=== PATIENT | male | born 1960 | race Caucasian/White ===

== ENCOUNTER 2016-12-16 03:53 | Inpatient (IN) | payer BC ==
--- NOTE | ~2016-12-16 | HP ---
History And Physical [place] [id number] [place]. [address] NAME: MERYL SEYMOUR : 56 STATUS : ADM IN [facility]#: [id number] AGE: 56 ADM/REG DATE : 12/16/16 MR#: [id number] REPORT SERV DATE: 12/16/16 DICTATED BY: YOHANA NASH DATE: 12/16/16 REPORT STATUS : Draft TRANSCRIBED BY: SERGIO DATE: 12/16/16 DATE OF ADMISSION: 12/16/2016 CHIEF COMPLAINT: A 56-year-old male presenting with weight loss and migratory arthritis and elevated ESR of 94. HISTORY OF PRESENTING ILLNESS: The patient's history was obtained through careful interview with the patient, , daughter, sister, coupled with review of [facility]. Around the end of October 2016, the patient began to have generalized illness. Over that period of time, he has lost about 10 or 15 pounds. His main complaints started out as some right middle quadrant abdominal pain, a sharp quality, 11/10 severity, but it has actually improved over time. He has had apparently "negative" evaluations of his abdomen. He describes "flushing," subjective fevers and chills. He has had pleuritic-like chest discomfort. He also describes difficulty swallowing as if something is getting caught in the back of his throat. He has had increasing weakness and debilitation. 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 It has affected his right hand and wrist and right feet. It becomes overtly swollen and then will go away within a day. He also has "lumps" that come and go. Sometimes, they have been on the sole of his foot or on his back. There have been no rashes. REVIEW OF SYSTEMS: A 14-point review of systems was obtained. Some of the pertinent positives and negatives will be reviewed here. GENERAL: There has been about a 10-15 pounds weight loss over three weeks. SKIN: He has noticed some rash-like discomfort of his lower back, although it has resolved now. HEAD: He has developed a headache. No neck pain or stiffness. EYES: No vision loss. No painful eyes. No change in vision or discharge from the eyes. NOSE: No nosebleeds. No sinus drainage or sinus pressure. MOUTH AND THROAT: No sores of the mouth. No thrush. No teeth problems. RESPIRATORY: No hemoptysis. No cough. No wheeze. CARDIOVASCULAR: No lower extremity edema. No palpitations. GI: No reflux symptoms. He has poor appetite. He has dry heaves and nausea, but never actually vomits up anything. No hematochezia. No melena. URINARY: He has noticed painful urination at times with urinary urgency, but he has not noticed any blood in his urine. History And Physical [address] [address] NAME: MERYL SEYMOUR : 56 STATUS : ADM IN [facility]#: [id number] AGE: 56 ADM/REG DATE : 12/16/16 MR#: [id number] REPORT SERV DATE: 12/16/16 DICTATED BY: YOHANA NASH DATE: 12/16/16 REPORT STATUS : Draft TRANSCRIBED BY: SERGIO DATE: 12/16/16 NEUROLOGICAL: No dizziness. No vertigo. Otherwise as mentioned 14-point review of systems was obtained and was otherwise negative. PAST MEDICAL HISTORY: Hypertension. PAST SURGICAL HISTORY: Left knee surgery and eye surgery. ALLERGIES: CIPRO, CAT DANDER. SOCIAL HISTORY: Smokes cigarettes. Drinks alcohol. Chews tobacco. He is , lives in [place], [place], has one daughter. Works as a ward. FAMILY HISTORY: Siblings with heart disease. Mother with rheumatoid arthritis and stroke. Father with lung cancer. CURRENT MEDICATIONS: Include aspirin 325 mg p.o. daily, vitamin B12, Flonase, Advil p.r.n., Prevacid 15 mg p.o. daily, multivitamin daily, Bystolic 7 mg as needed. PHYSICAL EXAMINATION: VITAL SIGNS: Temperature 98.2, pulse 113, blood pressure 120/89, respiratory rate 20, and O2 saturation 97% on room air. GENERAL: A pleasant, cooperative, male. He appears ill, but in no evidence of acute distress. HEENT: Pupils equal, round, and reactive to light. No conjunctival pallor. No scleral icterus. Nares are patent. Oropharynx is clear of obstruction. Moist mucous membranes. No swelling of the tongue. No intraoral lesions. Moist mucous membranes. NECK: Trachea midline. No thyromegaly. LYMPH: No cervical lymphadenopathy. No supraclavicular lymphadenopathy. No bilateral axillary lymphadenopathy. No bilateral inguinal lymphadenopathy. RESPIRATORY: Clear to auscultation at bases. No wheezes, no rales, no rhonchi. Normal respiratory effort. CARDIOVASCULAR: Tachycardic, regular rhythm. No murmurs, rubs, or gallops. No current extremity edema is appreciated. ABDOMEN: Only minimal tenderness across the mid abdomen, nonfocal, nondistended. No hepatosplenomegaly. DERMATOLOGICAL: Warm and dry extremities. No pallor, no cyanosis. I do not appreciate any rashes on a complete skin examination of the patient and no inflammatory changes of any of his joints at this time. PSYCHIATRIC: Normal affect. Good mood. Alert and oriented x3. LABORATORY DATA: ESR 94, CRP 223. White blood cell count 18.9, hemoglobin 12.6, hematocrit 36.8, platelets 507. Sodium 134, potassium 4.5, chloride 98, bicarbonate 22, BUN 13, creatinine 0.85, glucose 145, LEVI level is undetectable, lipase 85. Troponin negative. Lactic acid 1.2, ammonia level 17. Liver enzymes were within normal limits. Urinalysis does show greater than 182 red blood cells, 17 white blood cells. STUDIES: History And Physical [address] [address] NAME: MERYL SEYMOUR : 56 STATUS : ADM IN [facility]#: [id number] AGE: 56 ADM/REG DATE : 12/16/16 MR#: [id number] REPORT SERV DATE: 12/16/16 DICTATED BY: YOHANA NASH DATE: 12/16/16 REPORT STATUS : Draft TRANSCRIBED BY: SERGIO DATE: 12/16/[address] angiogram of the chest on 12/09/[address] scan of the abdomen and pelvis now shows cystitis-like changes. 3. Chest x-ray by my own evaluation shows no acute cardiopulmonary process. ASSESSMENT AND PLAN: 1. Inflammatory condition with migratory inflammatory arthritis. ESR of 94. Elevated CRP. Check an TIERA. Check rheumatoid factor. Check complement levels. Check an echocardiogram. Consult Rheumatology as I suspect this is rheumatological condition. We will also consult Infectious Disease to rule out the possibility of some underlying infectious process? 2. Hematuria with cystitis. Consult Urology, Dr. Patel. 3. Migratory arthritis. Check RPR. Check gonorrhea and chlamydia. KPL/MODL Yohana Nash M.D. / [id number] CC: MD John Spain MD
--- NOTE | ~2016-12-16 | DS ---
Discharge Summary [facility] [address] [place]. [address] NAME: MERYL SEYMOUR : 56 STATUS : DIS IN PAT#: [id number] AGE: 56 ADM/REG DATE : 12/16/16 MR#: [id number] REPORT SERV DATE: 12/20/16 DICTATED BY: DATE: REPORT STATUS : Draft TRANSCRIBED BY: MODL DATE: 12/19/16 ADMISSION DATE: 12/16/2016 DISCHARGE DATE: 12/19/2016 DISCHARGE DIAGNOSES: 1. Migratory arthritis. 2. Fever. 3. Rule out acute rheumatic fever. 4. Rule out polymyalgia rheumatica. 5. Leukocytosis. 6. Hyponatremia. 7. Hematuria. 8. Moderate protein-calorie malnutrition. 9. Weight loss. 10.Poor appetite. CONSULTS: Urology, Dr. Schuster. PROCEDURES AND IMAGIN. 12/16/2016, portable chest x-ray showed no acute cardiopulmonary diseases. 2. 12/16/2016, CT of the abdomen and pelvis without contrast showed no acute abnormality of the abdomen or pelvis with nonspecific inflammatory changes in the presacral space and perifascicular space, which may suggest acute cystitis or prostatitis. HOSPITAL COURSE: This is a pleasant 56-year-old male, presenting with weight loss and migratory arthritis and elevated sedimentation rate of 94. Please see admission H and P from Dr. Richardson on 12/16/2016. The patient states around the end of October 2016, began to have generalized illness and lost approximately 10-15 pounds. The patient's current albumin is 2.2. Upon my assuming his care on 12/18/2016, the patient was complaining of bilateral shoulder pain and bilateral hip and sacral pain stating it was acute onset starting approximately three weeks and has been very severe and escalating in pain. The patient states he had good episodic relief from his pain and his headache upon administration of IV steroids on admission and has not required any more pain medication since steroid administration. It has been discussed with this patient that we plan to continue his steroids for another three days after discharge to quite the inflammatory process. The patient's RNA was 54. His complement C was 140, complement C4 was 23.9. His blood cultures have all been negative. His TIERA titer was less than 1:40. He had a strep screen, which was negative. His RPR was negative. Stools for occult blood were negative and the patient had a normal respiratory culture. The patient stated upon examination on 12/18/2016 that he was having such severe pain that he was having difficulty getting out of bed, but approximately an hour and a half after he had his steroid injection, he was able to get up and take a shower. Tramadol was prescribed for pain control and the patient has not required any of this medication. Also received 40 mg of IV Solu-Medrol today with no complaints of pain. The patient does have a strong family history of rheumatoid arthritis of his mother and father. He has had an echocardiogram done, which was also within normal limits. Discharge Summary [place] [id number] [facility] [place]. [address] NAME: MERYL SEYMOUR : 56 STATUS : DIS IN [facility]#: [id number] AGE: 56 ADM/REG DATE : 12/16/16 MR#: [id number] REPORT SERV DATE: 12/20/16 DICTATED BY: DATE: REPORT STATUS : Draft TRANSCRIBED BY: SERGIO DATE: 12/19/16 PHYSICAL EXAMINATION: HEENT: Head is atraumatic, normocephalic. Pupils are equal, round, reactive to light and accommodation. Sclerae are clear. Nonicteric. Good dentition. NECK: Neck is supple with no palpable lymphadenopathy or thyromegaly. Neck veins are flat. CARDIAC: Regular rhythm with no obvious murmurs, rubs, or gallops. LUNGS: Lungs are clear to auscultation with normal respiratory effort. GI: Abdomen is soft and nontender with active bowel sounds in all four quadrants. Normal bowel habitus. No palpable organomegaly. EXTREMITIES: No significant edema, clubbing, or cyanosis. Dorsalis pedis and posterior tibial pulses are equal bilaterally. MUSCULOSKELETAL: Moves all extremities x4. He is ambulatory without assistance. No difficulties with balance. SKIN: Skin is warm and dry with normal color and turgor. NEURO/PSYCH: The patient is alert and oriented x4, pleasant, cooperative. Cranial nerves II through XII are grossly intact. The patient has had a poor appetite prior to stay, but in the last two days, has been eating well. DISCHARGE DIET: Regular diet. DISCHARGE MEDICATIONS: Vitamin B12 1000 units daily, aspirin 325 mg daily, Flonase two sprays in each nostril as needed for allergies, Advil 800 mg twice daily as needed for pain, Prevacid 15 mg p.o. daily p.r.n., Centrum one tablet daily, Bystolic 10 mg as needed for blood pressure, and prednisone 40 mg p.o. daily x3 days. ALLERGIES: THE PATIENT STATES HE IS ALLERGIC TO CIPRO FOR WHICH HE HAD ANGIOEDEMA AND CAT DANDER. THE PATIENT IS TO FOLLOW UP WITH A PCP IN 7-10 DAYS. THE PATIENT IS ALSO TO FOLLOW UP WITH UROLOGY IN [place] PER INSTRUCTIONS BY DR. SCHUSTER. THE PATIENT IS ALSO TO FOLLOW UP WITH RHEUMATOLOGY IF AGREED UPON BY DR. TAMIKO HUNTER. THEY WILL CONTACT HIM WITH AN APPOINTMENT IF IT IS CONSIDERED APPROPRIATE. APPROXIMATELY, 30 MINUTES HAS BEEN SPENT COORDINATING DISCHARGE CARE OF THIS PATIENT, INCLUDING [id number] ENCOUNTER AND SUMMARIZATION OF THIS DISCHARGE. SLC/MODL Mariann Moore NP / [id number] CC: MD John Calix MD
--- NOTE | ~2016-12-16 | CN ---
Consultation Report [facility] [address] [place]. [address] NAME: MEYRL SEYMOUR : 56 STATUS : ADM IN PAT#: [id number] AGE: 56 ADM/REG DATE : 12/16/16 MR#: [id number] REPORT SERV DATE: 12/16/16 DICTATED BY: CHATO TERRY III DATE: 12/16/16 REPORT STATUS : Draft TRANSCRIBED BY: MODGem DATE: 12/16/16 CONSULTATION DATE OF CONSULTATION: 12/16/2016 REASON FOR CONSULT: Cystitis and microscopic hematuria. HISTORY OF PRESENT ILLNESS: The patient is a 56-year-old male, who was readmitted with diagnosis of abdominal pain and multiple arthritic complaints. His history includes admission several weeks ago for right sided abdominal pain. This had a pleuritic component and he was evaluated with a CTA of the chest, which was normal, also the HIDA scan to check the gallbladder, this was normal as well. He has continued to have his pain, but the pain actually has in the middle of the right abdomen has improved somewhat. On the way to the hospital he just got swelling of his lips and throat, difficulty swallowing, and chills. He has had issues with transient pain in his wrist and right hand more and today is mainly his left shoulder, although, his right shoulder is hurting as well. His urologic complaints include slowing of his stream, some hesitancy, and mild discomfort with voiding over the last three to four weeks. Urinalysis showed 182 RBCs, 17 white cells. I could not find a previous urinalysis from the first admission. He states he has had no gross hematuria, no flank pain, and he has no history of stones. He was admitted to evaluate his migratory arthritis since his sedimentation rate and C-reactive protein were both elevated. He also continues to have some pleuritic type chest pain. PAST MEDICAL HISTORY: Hypertension, surgery on one eye, and surgery on his left knee. 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 FAMILY HISTORY: Positive for stroke, rheumatoid arthritis, and lung cancer. MEDICATIONS: Aspirin, Flonase, and Bystolic. REVIEW OF SYSTEMS: Review of systems that were basically limited to those in the in the present history of present illness. 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 PHYSICAL EXAMINATION: GENERAL: On exam, he is alert and oriented. VITAL SIGNS: Blood pressure is 128/75, he is afebrile pulse was 82. HEENT: Unremarkable. NECK: Supple. LUNGS: Clear. ABDOMEN: He did complain of pain in his right abdomen with deep breath. Abdomen was soft. Consultation Report [address] [place]. [address] NAME: MERYL SEYMOUR : 56 STATUS : ADM IN PAT#: [id number] AGE: 56 ADM/REG DATE : 12/16/16 MR#: [id number] REPORT SERV DATE: 12/16/16 DICTATED BY: CHATO TERRY III DATE: 12/16/16 REPORT STATUS : Draft TRANSCRIBED BY: SERGIO DATE: 12/16/16 Bowel sounds were present and active. There was some mild discomfort in the right lower quadrant. No mass was palpated. GENITOURINARY: The bladder was not palpable. Femoral pulses were intact. There are no inguinal adenopathy. Testicles were descended bilaterally, palpably normal. Normal Vasa and epididymides. The urethral meatus was normal. Anal sphincter tone was normal. There are no rectal masses. The prostate was 1+ to 2 smooth and without tenderness. DIAGNOSTIC DATA: His CT report was reviewed and he has one small stone in the lower pole of the left kidney. There is also two cyst. There was no obstruction. Several phleboliths are noted on the on the left side. The bladder is somewhat thick walled with some stranding. There were no intravesical masses. I later reviewed the CT with the radiologist. There was some stranding in the retroperitoneum and presacral area. LABORATORY DATA: His lab includes a CRP of 223, with sedimentation rate of 94, white count was 18.9, creatinine was normal, lipase was 85. IMPRESSION: The urologic problem includes microscopic hematuria, and symptoms suggestive of urinary tract infection, the bladder wall is mildly thickened and certainly urinary tract infection could cause this. He also has migratory arthritis and I am not sure what the correlation is with his voiding symptoms. A rheumatology consult has been ordered. The patient clinically does not have prostatitis and he did get a gram of Rocephin. However, I would like to get a urine culture. It does not look like a reflex culture was done and we will send to cytology. In addition, I will go ahead and start him on Flomax for his voiding symptoms. Thank you for the consult. OB/MODL Chato Terry III, M.D. / [id number] CC: Chris Burdick MD
[2016-12-16 02:40] LABS: BASOPHILS 0.2 %; BASOPHILS ABSOLUTE 0.03 10/3/uL (0.0-0.16); EOSINOPHILS 3.7 %; HEMOGLOBIN 12.6 g/dL (13.6-17.8); IMMATURE GRANULOCYTES 1.4 %; IMMATURE GRANULOCYTES ABSOLUTE 0.26 10/3/uL (0.0-0.11); LYMPHOCYTES 6.1 %; LYMPHOCYTES ABSOLUTE 1.15 10/3/uL (0.67-4.30); MEAN CORPUS HGB CONC 34.2 g/dL (32.0-36.0); MEAN CORPUSCULAR HEMOGLOB 27.9 pg (26.0-34.0); MEAN PLATELET VOLUME 8.3 fL (9.2-13.0); MONOCYTES 8.4 %; MONOCYTES ABSOLUTE 1.58 10/3/uL (0.21-1.20); NEUTROPHILS 80.2 %; NEUTROPHILS ABSOLUTE 15.19 10/3/uL (2.02-8.40); PLATELET COUNT 507 10/3/uL (150-400); RBC DISTRIBUTION WIDTH 13.3 % (12.0-16.0); RED CELL COUNT 4.51 10/6/uL (4.7-6.1)
[2016-12-16 02:44] LABS: ER CBC TAT 0 Hrs 07 Mins; HEMATOCRIT 36.8 % (40.0-51.0); MANUAL DIFF NO %; MEAN CORPUSCULAR VOLUME 81.6 fL (80-100); WHITE BLOOD CELLS 18.9 10/3/uL (4.5-10.5)
[2016-12-16 02:58] LABS: BAND NEUTROPHILS 6 %; BASOPHILS 1 %; BASOPHILS ABSOLUTE (CALC) 0.19 10/3/uL (0.0-0.16); EOSINOPHILS 2 %; EOSINOPHILS ABSOLUTE (CALC) 0.38 10/3/uL (0.0-0.53); ER DIFF TAT 0 Hrs 21 Mins; LYMPHOCYTES 5 %; LYMPHOCYTES ABSOLUTE (CALC) 0.95 10/3/uL (0.67-4.30); MONOCYTES 7 %; MONOCYTES ABSOLUTE (CALC) 1.32 10/3/uL (0.21-1.20); NEUTROPHILS ABSOLUTE (CALC) 16.07 10/3/uL (2.02-8.40); SEGMENTED NEUTROPHIL (0) 79 %; TOTAL NUCLEATED CELLS 100
[2016-12-16 02:59] LABS: PLATELET ESTIMATE SLT INC (ADEQUATE); RBC MORPHOLOGY NORM (NORMAL)
[2016-12-16 03:02] LABS: A/G RATIO 0.5 (0.7-1.9); ALBUMIN 2.8 G/DL (3.5-5.0); ALKALINE PHOSPHATASE 87 U/L (45-117); BUN (BLOOD UREA NITROGEN) 13 MG/DL (6-23); CALCIUM, SERUM 9.4 MG/DL (8.5-10.4); CHLORIDE, SERUM 98 MMOL/L (96-112); CO2 (CARBON DIOXIDE) 22 MMOL/L (24-34); CPK (IF ELEVATED MB BANDS) 21 U/L (0-200); CREATININE 0.85 MG/DL (0.70-1.30); GFR AFRICAN AMERICAN 111 ML/MIN (>=60); GFR NON AFRICAN AMERICAN 96 ML/MIN (>=60); GLOBULIN 5.2 G/DL (2.5-4.1); GLUCOSE, SERUM 145 MG/DL (60-99); POTASSIUM, SERUM 4.5 MMOL/L (3.5-5.3); SGOT(AST) 13 U/L (5-40); SGPT(ALT) 24 U/L (5-65); SODIUM, SERUM 134 MMOL/L (135-148); TOTAL BILIRUBIN 0.4 MG/DL (0-1.2); TROPONIN I <0.02 NG/ML (<0.05)
[2016-12-16 03:07] LABS: ACETAMINOPHEN LEVEL (TYLENOL) < 2.0 MCG/ML (10.0-20.0); SALICYLATE < 1.7 MG/DL (-)
[2016-12-16 03:08] LABS: ALCOHOL < 10 MG/DL (0)
[~2016-12-16 03:53] MED LIST: ADVIL PO; ASA5GR PO; CENTRUM PO; CIPRO PO; COZ50 PO; FLONASE NAS; PREV15 PO; [UNRECOGNIZED DRUG - REMARK] TOP
[2016-12-16 04:11] LABS: ASCORBIC ACID (UR NOT ORDER) 40 (NEG); BILIRUBIN, URINE NEGATIVE (NEG); ER URINALYSIS TAT 0 Hrs 10 Mins; KETONE, URINE 20 MG/DL (NEG); LEUKOCYTE ESTERASE(NOT OR TRACE (NEG); NITRITE (URINE) NEG (NEG); WBC (NOT ORDERED) (RFLEX) 17 (0-5)
[2016-12-16 04:28] LABS: AMPHETAMINES (NOT ORD) NEG (NEG); BARBITURATES (NOT ORDERED NEG (NEG); BENZODIAZEPINES (NOT ORD) NEG (NEG); CANNABINOIDS (THC) NEG (NEG); COCAINE (NOT ORDERED) NEG (NEG); OPIATES POS (NEG); PHENCYCLIDINE(PCP) NEG (NEG)
[2016-12-16 04:29] LABS: TRICYCLICS NEG (NEG)
[2016-12-16] MEDS ORDERED: ASA5GR PO (05:15)
[2016-12-16] MEDS ORDERED: FLONASE NAS (05:16)
[2016-12-16] MEDS ORDERED: PREV15 PO (05:17)
[2016-12-16] MEDS ORDERED: ADVIL PO (05:17)
[2016-12-16] MEDS ORDERED: CENTRUM PO (05:18)
[2016-12-16] MEDS ORDERED: BYSTOLIC10 MG PO (05:19)
[2016-12-16] MEDS ORDERED: CYANO1000T PO (05:20)
[2016-12-16 07:40] LABS: COMPLEMENT C4 23.9 MG/DL (16-47)
[2016-12-17 06:26] LABS: BASOPHILS 0.1 %; BASOPHILS ABSOLUTE 0.01 10/3/uL (0.0-0.16); EOSINOPHILS ABSOLUTE 0.64 10/3/uL (0.0-0.53); HEMOGLOBIN 10.3 g/dL (13.6-17.8); IMMATURE GRANULOCYTES 0.9 %; IMMATURE GRANULOCYTES ABSOLUTE 0.11 10/3/uL (0.0-0.11); LYMPHOCYTES 4.6 %; LYMPHOCYTES ABSOLUTE 0.59 10/3/uL (0.67-4.30); MEAN CORPUS HGB CONC 32.6 g/dL (32.0-36.0); MEAN CORPUSCULAR HEMOGLOB 27.2 pg (26.0-34.0); MEAN CORPUSCULAR VOLUME 83.6 fL (80-100); MEAN PLATELET VOLUME 8.3 fL (9.2-13.0); MONOCYTES 8.7 %; MONOCYTES ABSOLUTE 1.12 10/3/uL (0.21-1.20); NEUTROPHILS 80.7 %; NEUTROPHILS ABSOLUTE 10.35 10/3/uL (2.02-8.40); PLATELET COUNT 422 10/3/uL (150-400); RBC DISTRIBUTION WIDTH 13.3 % (12.0-16.0); RED CELL COUNT 3.78 10/6/uL (4.7-6.1); WHITE BLOOD CELLS 12.8 10/3/uL (4.5-10.5)
[2016-12-17 06:27] LABS: HEMATOCRIT 31.6 % (40.0-51.0); MANUAL DIFF NO %
[2016-12-17 06:30] LABS: BUN (BLOOD UREA NITROGEN) 12 MG/DL (6-23); CALCIUM, SERUM 8.2 MG/DL (8.5-10.4); CHLORIDE, SERUM 97 MMOL/L (96-112); CO2 (CARBON DIOXIDE) 24 MMOL/L (24-34); CREATININE 0.68 MG/DL (0.70-1.30); GFR AFRICAN AMERICAN 122 ML/MIN (>=60); GFR NON AFRICAN AMERICAN 105 ML/MIN (>=60); GLUCOSE, SERUM 107 MG/DL (60-99); POTASSIUM, SERUM 4.1 MMOL/L (3.5-5.3); SODIUM, SERUM 132 MMOL/L (135-148)
[2016-12-17 09:39] LABS: ANA TITER <1:40 TITER
[2016-12-17 14:01] LABS: ASCORBIC ACID (UR NOT ORDER) NEG (NEG); BILIRUBIN, URINE NEGATIVE (NEG); KETONE, URINE NEGATIVE (NEG); LEUKOCYTE ESTERASE(NOT OR TRACE (NEG); WBC (NOT ORDERED) (RFLEX) 4 (0-5)
[2016-12-18 05:09] LABS: BASOPHILS 0.1 %; BASOPHILS ABSOLUTE 0.01 10/3/uL (0.0-0.16); EOSINOPHILS 5.2 %; EOSINOPHILS ABSOLUTE 0.62 10/3/uL (0.0-0.53); HEMATOCRIT 33.3 % (40.0-51.0); IMMATURE GRANULOCYTES 0.8 %; IMMATURE GRANULOCYTES ABSOLUTE 0.09 10/3/uL (0.0-0.11); LYMPHOCYTES ABSOLUTE 0.96 10/3/uL (0.67-4.30); MEAN CORPUSCULAR HEMOGLOB 27.4 pg (26.0-34.0); MEAN PLATELET VOLUME 8.2 fL (9.2-13.0); MONOCYTES 7.8 %; MONOCYTES ABSOLUTE 0.94 10/3/uL (0.21-1.20); NEUTROPHILS 78.1 %; NEUTROPHILS ABSOLUTE 9.36 10/3/uL (2.02-8.40); PLATELET COUNT 370 10/3/uL (150-400); RBC DISTRIBUTION WIDTH 13.4 % (12.0-16.0); RED CELL COUNT 4.01 10/6/uL (4.7-6.1)
[2016-12-18 05:10] LABS: MANUAL DIFF NO %
[2016-12-18 05:24] LABS: A/G RATIO 0.4 (0.7-1.9); ALKALINE PHOSPHATASE 91 U/L (45-117); BUN (BLOOD UREA NITROGEN) 10 MG/DL (6-23); CALCIUM, SERUM 8.6 MG/DL (8.5-10.4); CHLORIDE, SERUM 95 MMOL/L (96-112); CO2 (CARBON DIOXIDE) 26 MMOL/L (24-34); CREATININE 0.91 MG/DL (0.70-1.30); GFR AFRICAN AMERICAN 107 ML/MIN (>=60); GFR NON AFRICAN AMERICAN 93 ML/MIN (>=60); GLUCOSE, SERUM 110 MG/DL (60-99); POTASSIUM, SERUM 3.8 MMOL/L (3.5-5.3); SGOT(AST) 8 U/L (5-40); SGPT(ALT) 18 U/L (5-65); SODIUM, SERUM 133 MMOL/L (135-148); TOTAL BILIRUBIN 0.3 MG/DL (0-1.2); TOTAL PROTEIN 7.2 G/DL (6.0-8.5)
[2016-12-18 05:27] LABS: ALBUMIN 2.2 G/DL (3.5-5.0)
[2016-12-19 04:07] LABS: BUN (BLOOD UREA NITROGEN) 15 MG/DL (6-23); CALCIUM, SERUM 9.2 MG/DL (8.5-10.4); CHLORIDE, SERUM 100 MMOL/L (96-112); CO2 (CARBON DIOXIDE) 27 MMOL/L (24-34); CREATININE 0.86 MG/DL (0.70-1.30); GFR AFRICAN AMERICAN 111 ML/MIN (>=60); GFR NON AFRICAN AMERICAN 96 ML/MIN (>=60); GLUCOSE, SERUM 155 MG/DL (60-99); POTASSIUM, SERUM 4.3 MMOL/L (3.5-5.3); SODIUM, SERUM 137 MMOL/L (135-148)
[2016-12-19 04:11] LABS: BASOPHILS 0 %; EOSINOPHILS 0.1 %; EOSINOPHILS ABSOLUTE 0.01 10/3/uL (0.0-0.53); HEMATOCRIT 30.2 % (40.0-51.0); HEMOGLOBIN 10.2 g/dL (13.6-17.8); IMMATURE GRANULOCYTES 0.5 %; IMMATURE GRANULOCYTES ABSOLUTE 0.07 10/3/uL (0.0-0.11); LYMPHOCYTES ABSOLUTE 0.77 10/3/uL (0.67-4.30); MANUAL DIFF NO %; MEAN CORPUS HGB CONC 33.8 g/dL (32.0-36.0); MEAN CORPUSCULAR HEMOGLOB 27.6 pg (26.0-34.0); MEAN CORPUSCULAR VOLUME 81.8 fL (80-100); MEAN PLATELET VOLUME 8.9 fL (9.2-13.0); MONOCYTES 7.5 %; MONOCYTES ABSOLUTE 1.15 10/3/uL (0.21-1.20); NEUTROPHILS 86.9 %; NEUTROPHILS ABSOLUTE 13.26 10/3/uL (2.02-8.40); PLATELET COUNT 388 10/3/uL (150-400); RBC DISTRIBUTION WIDTH 13.2 % (12.0-16.0); RED CELL COUNT 3.69 10/6/uL (4.7-6.1); WHITE BLOOD CELLS 15.3 10/3/uL (4.5-10.5)
[2016-12-19] MEDS ORDERED: P20 PO (18:42)
[2016-12-19] MEDS ORDERED: FLOMAX4 PO (19:06)
== END 2016-12-19 19:17 | disposition home or self-care (01) | DRG 546 ==
LOC: ER 03:53 → 7NO 05:19
PROVIDERS: Hospitalist; Nurse Practitioner Family; Radiology Radiation Oncology; Specialist
DX: M35.3 Polymyalgia rheumatica (principal); E44.0 Moderate protein-calorie malnutrition; N30.91 Cystitis, unspecified with hematuria; E87.1 Hypo-osmolality and hyponatremia; M06.9 Rheumatoid arthritis, unspecified; M13.0 Polyarthritis, unspecified; Z68.23 Body mass index [BMI] 23.0-23.9, adult; D64.9 Anemia, unspecified; I10 Essential (primary) hypertension; R63.4 Abnormal weight loss; Z88.1 Allergy status to other antibiotic agents; Z82.3 Family history of stroke; Z82.61 Family history of arthritis; Z79.82 Long term (current) use of aspirin
CPT/HCPCS: 71010; 74176; 80048; 80053; 80305; 80307; 81001; 82140; 82272; 82550; 83605; 83690; 83735; 84484; 85025; 85652; 86039; 86140; 86160; 86431; 86592; 87040; 87070; 87880; 88112; 92610-GN; 93005; 93306; 96374; 96376; 99285; A9270-GY; J1170; J2405; J2920